=== PATIENT | male | born 1960 | race Caucasian/White ===

== ENCOUNTER 2017-08-21 06:33 | Inpatient (IN) | payer OTHER ==
[~2017-08-21] VITALS: Ht 172.7 cm; Wt 78.1 kg
[2017-08-21 07:33] LABS: HEMATOCRIT 45.3 % (38.0-50.0); HEMOGLOBIN 15.3 G/DL (12.5-16.6); MCH 30.8 PG (29.0-34.0); MCHC 33.8 G/DL (30.0-36.0); MCV 91.1 FL (86-99); PLATELET COUNT 341 K/uL (156-360); RBC DIS.WIDTH-CV 13.6 % (11.8-14.6); RBC DIS.WIDTH-SD 45.6 % (39-53); RED BLOOD COUNT 4.97 M/uL (4.00-5.50); WHITE BLOOD COUNT 11.8 K/uL (4.1-10.2)
[2017-08-21 07:39] LABS: INTER. NORMALIZED RATIO 1.2
[2017-08-21 07:42] LABS: PTT 24.5 SEC (25-37)
[2017-08-21 08:05] LABS: TROP-I INTERPRETATION NEGATIVE; TROPONIN-I < 0.01 ng/mL (0.0-0.30)
[2017-08-21 08:20] LABS: CHLORIDE 94 MEQ/L (99-109); CREATININE 0.9 MG/DL (0.6-1.3); GFR ESTIMATE (CALCULATED) > 59 mL/min/ (58.99-99999); GLUCOSE 132 mg/dL (70-99); POTASSIUM 3.5 MEQ/L (3.7-5.4); SODIUM 136 MEQ/L (136-147); UREA NITROGEN (BUN) 11 mg/dL (9-23)
[2017-08-21 09:42] LABS: BILIRUBIN NEGATIVE; BLOOD NEGATIVE; COLOR YELLOW ((YELLOW)); GLUCOSE (STRIP) NEGATIVE; KETONES NEGATIVE; LEUKOCYTES NEGATIVE; NITRITE NEGATIVE; PROTEIN (STRIP) NEGATIVE; SPECIFIC GRAVITY 1.023 (1.000-1.030); UROBILINOGEN 0.2 MG/DL (0.2-1.0)
[2017-08-21 09:43] LABS: APPEARANCE CLEAR ((CLEAR)); UCUL ADDED? NO
[2017-08-21 19:25] VITALS: BP 130/72
[2017-08-21 23:14] VITALS: BP 152/85
[2017-08-22 04:24] VITALS: BP 126/80
[2017-08-22 07:17] LABS: HEMATOCRIT 39.9 % (38.0-50.0); MCH 30.4 PG (29.0-34.0); MCHC 32.6 G/DL (30.0-36.0); MCV 93.2 FL (86-99); PLATELET COUNT 309 K/uL (156-360); RBC DIS.WIDTH-CV 13.9 % (11.8-14.6); RBC DIS.WIDTH-SD 47.1 % (39-53); RED BLOOD COUNT 4.28 M/uL (4.00-5.50); WHITE BLOOD COUNT 12.2 K/uL (4.1-10.2)
[2017-08-22 07:36] LABS: CHLORIDE 105 MEQ/L (99-109); CREATININE 0.7 MG/DL (0.6-1.3); GFR ESTIMATE (CALCULATED) > 59 mL/min/ (58.99-99999); GLUCOSE 156 mg/dL (70-99); POTASSIUM 3.8 MEQ/L (3.7-5.4); SODIUM 142 MEQ/L (136-147); UREA NITROGEN (BUN) 8 mg/dL (9-23)
[2017-08-22 08:08] VITALS: BP 127/71
[2017-08-22 11:26] VITALS: BP 134/72
[2017-08-22 17:26] VITALS: BP 143/87
[2017-08-22 19:50] VITALS: BP 123/62
[2017-08-22 23:41] VITALS: BP 134/62
[2017-08-23 04:15] VITALS: BP 135/79
[2017-08-23 06:40] LABS: HEMATOCRIT 41.5 % (38.0-50.0); HEMOGLOBIN 13.4 G/DL (12.5-16.6); MCHC 32.3 G/DL (30.0-36.0); PLATELET COUNT 368 K/uL (156-360); RBC DIS.WIDTH-SD 48.2 % (39-53); RED BLOOD COUNT 4.46 M/uL (4.00-5.50); WHITE BLOOD COUNT 22.4 K/uL (4.1-10.2)
[2017-08-23 07:09] LABS: CHLORIDE 105 MEQ/L (99-109); CREATININE 0.8 MG/DL (0.6-1.3); GFR ESTIMATE (CALCULATED) > 59 mL/min/ (58.99-99999); GLUCOSE 146 mg/dL (70-99); SODIUM 141 MEQ/L (136-147); UREA NITROGEN (BUN) 10 mg/dL (9-23)
[2017-08-23 08:07] VITALS: BP 133/72
[2017-08-23] MEDS ORDERED: OSELTAMIVIR PHO75 MG PO (09:39)
[2017-08-23] MEDS ORDERED: MEDROL DOSEPAK4 MG PO (09:40)
[2017-08-23] MEDS ORDERED: DOXYCYCLINE HY100 MG PO (09:40)
[2017-08-23] MEDS ORDERED: VENTOLIN HFA18 GM IH (09:41)
[2017-08-23] MEDS ORDERED: NICODERM CQ1 EAC1 TD (09:42)
[2017-08-23] MEDS ORDERED: BACID1 CAP PO (09:44)
== END 2017-08-23 11:13 | disposition home or self-care (01) | DRG 189 ==
LOC: EME 06:33 → 4EAST 10:10 → EDOF 10:10 → ENRESERV 10:15 → 4EAST 19:03
PROVIDERS: Emergency Medicine; Internal Medicine
DX: J96.01 Acute respiratory failure with hypoxia (principal); J10.00 Influenza due to other identified influenza virus with unspecified type of pneumonia; K21.9 Gastro-esophageal reflux disease without esophagitis; J20.9 Acute bronchitis, unspecified; F17.210 Nicotine dependence, cigarettes, uncomplicated; J10.1 Influenza due to other identified influenza virus with other respiratory manifestations; R79.1 Abnormal coagulation profile; Z79.51 Long term (current) use of inhaled steroids
CPT/HCPCS: 71045; 71275; 80048; 81003; 83605; 84484; 85027; 85379; 85610; 85730; 87040; 87070; 87205; 87502; 93005; 94640; 94640 76; 94799; 99202; 99281; 99285; J0295; J1650; J2920; J7030; J7050